=== PATIENT | male | born 1995 | race Asian ===

== ENCOUNTER 2017-03-08 01:52 | Emergency (ER) | payer MEDICAID, SELFPAY ==
[~2017-03-08] VITALS: Ht 177.8 cm; Wt 81.8 kg
[2017-03-08] MEDS ORDERED: LIDOCAINE HCL 1% 10 ML VIAL INJ ONE (02:30)
[2017-03-08] MEDS ORDERED: PERTUSS(ACELL),DIPH,TET VAC/PF 0.5 ML VIAL IM ONE (02:30)
[2017-03-08 03:44] VITALS: BP 130/87
[2017-03-08] MEDS ORDERED: BACITRACIN 0.9 GM PACKET OINTMENT TP ONE (03:45)
== END 2017-03-08 03:56 | disposition home or self-care (01) ==
LOC: EMS 01:54
DX: S61.216A Laceration without foreign body of right little finger without damage to nail, initial encounter (principal); F17.210 Nicotine dependence, cigarettes, uncomplicated; F12.90 Cannabis use, unspecified, uncomplicated; W45.8XXA Other foreign body or object entering through skin, initial encounter; Y93.41 Activity, dancing; Y92.89 Other specified places as the place of occurrence of the external cause; Y99.8 Other external cause status
CPT/HCPCS: 12001; 73130; 90471; 90715; 99284; J3490